=== PATIENT | female | born 1995 | race Hispanic/Latino ===

== ENCOUNTER 2018-02-19 15:45 | Emergency (ER) | payer OTHER ==
[~2018-02-19] VITALS: Ht 149.9 cm; Wt 56.7 kg
[~2018-02-19 15:45] MED LIST: BACTRIM DS 8001 TAB PO; BIOTIN1000 MCG PO; ESCITALOPRAM20 MG PO; IBU800 MG PO; LEXAPRO 20MG M20 MG PO; MULTIVITAMIN1 TAB PO; NATURAL IRON65 MG PO; VIBRAMYCIN 100100 MG PO; VITAMIN D31000 IU PO; ZYPREXA10 MG PO
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
[2018-02-19 16:27] LABS: ABSOLUTE BASOPHIL COUNT 0 /CUMM (0.0-0.2); ABSOLUTE EOSINOPHIL COUNT 0 /CUMM (0.0-0.7); ABSOLUTE GRANULOCYTE CT 2.8 /CUMM (1.4-6.5); ABSOLUTE MONOCYTE COUNT 0.3 /CUMM (0.10-0.60); BASOPHIL % 0.3 % (0.0-2.0); EOSINOPHIL % 0.7 % (0-5); GRANULOCYTE % 54.8 % (42.2-75.2); HEMATOCRIT 35.4 % (37-47); MEAN CORPUSCULAR HGB 29.2 PG (27.0-31.0); MEAN CORPUSCULAR HGB CONC 34.8 G/DL (33.0-37.0); MEAN CORPUSCULAR VOLUME 83.7 FL (81.0-99.0); MEAN PLATELET VOLUME 9.2 FL (7.4-10.4); PLATELET COUNT 308 /CUMM (130-400); RBC DISTRIBUTION WIDTH 12.9 % (11.5-14.5); RED BLOOD CELL CT 4.23 /CUMM (4.20-5.40); WHITE BLOOD CELL COUNT 5.1 /CUMM (4.8-10.8)
[2018-02-19] MEDS ORDERED: ADAPALENE TOP (19:04)
[2018-02-19] MEDS ORDERED: BENZOYL PEROXIDE TOP (19:04)
[2018-02-19] MEDS ORDERED: SEASONIQUE 0.11 EACH PO (19:04)
[2018-02-19] MEDS ORDERED: BIOTIN800 MCG PO (19:05)
[2018-02-19 19:37] VITALS: BP 121/72
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
== END 2018-02-19 20:47 ==
LOC: ERH 15:45
PROVIDERS: Physician Assistant
DX: F32.9 Major depressive disorder, single episode, unspecified (principal)
CPT/HCPCS: 80307; G0463; G0480